=== PATIENT | female | born 1985 | race Two or more races ===

== ENCOUNTER 2017-01-07 04:18 | Inpatient (IN) | payer SELFPAY ==
[~2017-01-07] VITALS: Ht 154.9 cm; Wt 80.9 kg
[2017-01-07] MEDS ORDERED: TERBUTALINE 1 MG/ML VIAL. SQ PRN (05:30)
[2017-01-07] MEDS ORDERED: OXYTOCIN 30 UNIT/500 ML PREMIX 500 ML IV PRN ×3 (05:30→06:30)
[2017-01-07] MEDS ORDERED: LIDOCAINE 1% PF 30 ML VIAL. INJ PRN (05:30)
[2017-01-07] MEDS ORDERED: ONDANSETRON PF 4 MG/2 ML VIAL. IV PRN (05:30)
[2017-01-07] MEDS ORDERED: 0.9 % SODIUM CHLORIDE 10 ML DISP.SYRIN. IV PRN ×2 (05:30→06:30)
[2017-01-07] MEDS ORDERED: fentaNYL PF VIAL 100 MCG/2 ML VIAL IV PRN (05:30)
[2017-01-07] MEDS ORDERED: IBUPROFEN 800 MG TABLET. PO PRN (05:30)
[2017-01-07 05:36] LABS: HEMATOCRIT 39.2 % (36.0-47.0); HEMOGLOBIN 13.6 g/dL (12.0-15.5); RED BLOOD COUNT 4.33 x10^6/uL (3.50-5.40); RED CELL DISTRIBUTION WIDTH 14.5 % (11.5-14.5)
[2017-01-07] MEDS: IV RINGERS,LACTATED 1000ML 1,000 ML IV SCH ×3 (06:16→21:25)
--- NOTE | 2017-01-07 06:23 | PDOC ---
VAGINAL DELIVERY DATE DATE: 01/07/17 TIME: 06:21 : 4 Para: 3 EDC: Jan 07, 2017 VAGINAL DELIVERY: VTX VACCUM ASSISTED: No PLACENTA: Spontaneous SEX: Male WEIGHT 7/8 Nuchal Cord: Yes, Times 1, Loose Amniotic Fluid: Meconium PAIN: Natural EPISIOTOMY: No EXTENSION: No EBL 300cc COMPLICATIONS none CONDITION Stable Signs of Intrauterine Infectio: None Shoulder Dystocia: No DIAGNOSIS TIUPDel Problems: RODGER CHOI MD Jan 07, 2017 06:23
[2017-01-07] MEDS ORDERED: PHENYLEPH/MINERAL OIL/PETROLAT RECTAL OINTMENT 28GM TUBE. RC PRN (06:30)
[2017-01-07] MEDS ORDERED: ACETAMINOPHEN 325 MG TABLET. PO PRN (06:30)
[2017-01-07] MEDS ORDERED: SIMETHICONE 80 MG TAB.CHEW PO PRN (06:30)
[2017-01-07] MEDS ORDERED: MAG HYDROX/ALUMINUM HYD/SIMETH 30 ML ORAL.SUSP PO PRN (06:30)
[2017-01-07] MEDS ORDERED: ZOLPIDEM 5 MG TABLET. PO PRN (06:30)
[2017-01-07] MEDS ORDERED: BENZOCAINE 20% TOPICAL AEROSOL SPRAY 57GM CAN. TP PRN (06:30)
[2017-01-07] MEDS ORDERED: HYDROCORTISONE 1% TOPICAL OINTMENT 30GM TUBE. TP PRN (06:30)
[2017-01-07] MEDS ORDERED: diphenhydrAMINE HCL 25 MG CAPSULE PO PRN (06:30)
[2017-01-07] MEDS ORDERED: MAGNESIUM HYDROXIDE 2,400 MG/30 ML ORAL.SUSP. PO PRN (06:30)
[2017-01-07 06:33] LABS: BILIRUBIN,URINE NEGATIVE (NEG); GLUCOSE,URINE NEGATIVE (NEG); NITRITE,URINE NEGATIVE (NEG); PROTEIN,URINE NEGATIVE (NEG-TRACE); UROBILINOGEN,URINE 0.2 mg/dL (0.2 mg/dL)
[2017-01-07 06:44] LABS: BACTERIA,URINE FEW /HPF (0-FEW); RBC,URINE RARE /HPF (0-2); SQUAMOUS EPITHELIAL CELL,UR FEW /LPF
[2017-01-07] MEDS: FERROUS SULFATE 325 MG TABLET. PO SCH ×2 (08:00→17:00)
[2017-01-07] MEDS: IBUPROFEN 800 MG TABLET. PO SCH ×2 (08:42→20:25)
[2017-01-07 09:50] VITALS: BP 110/63
[2017-01-07 10:30] VITALS: BP 109/69
[2017-01-07 12:50] VITALS: BP 111/68
[2017-01-07 13:20] LABS: BARBITURATES NEG (NEG); BENZODIAZEPINES NEG (NEG); CANNABINOIDS NEG (NEG); COCAINE NEG (NEG); METHADONE NEG (NEG); OPIATES NEG (NEG); PHENCYCLIDINE NEG (NEG)
--- NOTE | 2017-01-07 13:37 | PDOC1 ---
OB - History Hx of Present Care: Good Care Ultrasounds: Normal mid trimester US Obstetrical Complications: None Medical Complications: None Past Family/Social History * Past Medical, Surgical, Family and Obstetric Histories reviewed from chart. Rubella: Immune RPR/VDRL: Negative GBS Status: Negative HBsAG: Negative OB - Chief Complaint & HPI Date of Admission: Date of Admission: Jan 07, 2017 at 04:18 Chief Complaint/History : 3 Para: 2 EGA: 40 Reason for admission: active labor Admission Nurse Assessment Rev: Yes Problems: OB - Admission Exam Physical Exam Vitals: VS - Last 72 Hours, by Label Date Time Temp Pulse Resp B/P (MAP) Pulse Ox O2 Delivery O2 Flow Rate FiO2 01/07/17 12:50 98.1 80 20 111/68 (82) Room Air 98.1 01/07/17 10:30 98.5 75 20 109/69 (82) 98.5 01/07/17 09:50 99.5 91 40 110/63 (79) 99.5 HEENT: Normal Heart: Regular Rate Lungs: Clear Abdomen: Gravid, Non tender, Soft Extremities: Edema Reflexes: Normal Cervical Dilatation: 5cm Effacement: 100% Station: -1 Membranes: Intact Heart Rate: Normal Accelerations: Accelerations Present Decelerations: No decelerations Contractions on Admission: < 5 Minutes Apart Intensity: Firm Text A: 40 wks IUP Active labor P: Admit for labor management. HANH GUERIN Jr, MD Jan 07, 2017 13:37
[2017-01-07] MEDS: HYDROcodone/APAP 5/325MG 1 TAB TABLET PO PRN ×2 (14:47→19:45)
[2017-01-07 17:15] VITALS: BP 113/79
[2017-01-07 20:15] VITALS: BP 112/72
[2017-01-07 23:30] VITALS: BP 125/66
[2017-01-08] MEDS: IBUPROFEN 800 MG TABLET. PO SCH ×3 (05:45→22:00)
[2017-01-08 06:20] LABS: RPR REFLEX Non Reactive (Non Reactive)
[2017-01-08 06:35] VITALS: BP 117/70
[2017-01-08] MEDS: FERROUS SULFATE 325 MG TABLET. PO SCH ×2 (08:00→17:00)
[2017-01-08 10:25] VITALS: BP 104/64
[2017-01-08 14:24] VITALS: BP 130/70
--- NOTE | 2017-01-08 18:23 | PDOC ---
OB Progress Note Date of Service 01/08/17 Time of Evaluation 1820 Notes Pt. feeling well. Pain controlled. Breast feeding. Lab Laboratory Tests Test 01/07/17 05:05 01/07/17 06:20 01/08/17 05:25 White Blood Count 9.0 x10^3/uL (4.0-11.0) Red Blood Count 4.33 x10^6/uL (3.50-5.40) Hemoglobin 13.6 g/dL (12.0-15.5) Hematocrit 39.2 % (36.0-47.0) 33.5 % (36.0-47.0) Mean Corpuscular Volume 91 fL (79-100) Mean Corpuscular Hemoglobin 31 pg (25-35) Mean Corpuscular Hemoglobin Concent 35 g/dL (31-37) Red Cell Distribution Width 14.5 % (11.5-14.5) Platelet Count 163 x10^3/uL (140-400) RPR Titer Additional Testing Non reactive (Non Reactive) Urine Collection Type Unknown Urine Color Yellow Urine Clarity Clear Urine pH 6.0 Urine Specific [place] 1.020 Urine Protein Negative mg/dL (NEG-TRACE) Urine Glucose (UA) Negative mg/dL (NEG) Urine Ketones (Stick) Negative mg/dL (NEG) Urine Blood Small (NEG) Urine Nitrite Negative (NEG) Urine Bilirubin Negative (NEG) Urine Urobilinogen Dipstick 0.2 mg/dL (0.2 mg/dL) Urine Leukocyte Esterase Negative (NEG) Urine RBC Rare /HPF (0-2) Urine WBC 1-4 /HPF (0-4) Urine Squamous Epithelial Cells Few /LPF Urine Bacteria Few /HPF (0-FEW) Urine Mucus Slight /LPF Urine Opiates Screen Neg (NEG) Urine Methadone Screen Neg (NEG) Urine Barbiturates Neg (NEG) Urine Phencyclidine Screen Neg (NEG) Urine Amphetamine/Methamphetamine Neg (NEG) Urine Benzodiazepines Screen Neg (NEG) Urine Cocaine Screen Neg (NEG) Urine Cannabinoids Screen Neg (NEG) Urine Ethyl Alcohol Neg (NEG) Laboratory Tests Test 01/08/17 05:25 Hematocrit 33.5 % (36.0-47.0) Medications Current Medications Sodium Chloride (Normal Saline Flush) 3 ml QSHIFT PRN IV AFTER MEDS AND BLOOD DRAWS; Start 01/07/17 at 05:30 Ringer's Solution 1,000 ml @ 125 mls/hr Q8H IV Last administered on 01/07/17 06:16; Start 01/07/17 at 05:25; Stop 01/08/17 at 00:14; Status DC Fentanyl Citrate (Fentanyl 2ml Vial) 100 mcg PRN Q10MIN PRN IV Labor pain; Start 01/07/17 at 05:30 Ondansetron HCl (Zofran) 4 mg PRN Q4HRS PRN IV NAUSEA/VOMITING; Start 01/07/17 at 05:30 Terbutaline Sulfate (Brethine) 0.25 mg 1X PRN PRN SQ SEE COMMENTS; Start at 05:30; Stop 01/08/17 at 05:29; Status DC Lidocaine HCl 30 ml 1X PRN PRN INJ SEE COMMENTS Last administered on 01/07/17 06:14; Start 01/07/17 at 05:30; Stop 01/09/17 at 05:29 Oxytocin/Sodium Chloride 500 ml @ 0 mls/hr CONT PRN IV SEE I/O RECORD; Start at 05:30 Oxytocin/Sodium Chloride 500 ml @ 0 mls/hr CONT PRN PRN IV Post delivery bleeding Last administered on 01/07/17 06:15; Start 01/07/17 at 05:30 Ibuprofen (Motrin) 800 mg PRN Q6HRS PRN PO PAIN; Start 01/07/17 at 05:30 Sodium Chloride (Normal Saline Flush) 10 ml QSHIFT PRN IV AFTER MEDS AND BLOOD DRAWS; Start 01/07/17 at 06:30 Oxytocin/Sodium Chloride 500 ml @ 62.5 mls/hr CONT PRN IV SEE I/O RECORD; Start 01/07/17 at 06:30; Stop 01/07/17 at 14:29; Status DC Acetaminophen (Tylenol) 650 mg PRN Q6HRS PRN PO MILD PAIN / TEMP; Start at 06:30 Ibuprofen (Motrin) 800 mg Q8HRS PO Last administered on 01/08/17 18:03; Start 01/07/17 at 14:00 Magnesium Hydroxide (Milk Of Magnesia) 2,400 mg PRN DAILY PRN PO CONSTIPATION; Start 01/07/17 at 06:30 Al Hydroxide/Mg Hydroxide (Mylanta Plus Xs) 30 ml PRN Q4HRS PRN PO HEARTBURN / GAS; Start 01/07/17 at 06:30 Simethicone (Gas-X) 80 mg PRN AFTMEALHC PRN PO GAS / BLOATING; Start 01/07/17 at 06:30 Diphenhydramine HCl (Benadryl) 25 mg PRN Q6HRS PRN PO ITCHING; Start 01/07/17 at 06:30 Benzocaine (Americaine) 1 spray PRN QID PRN TP TOPICAL PAIN Last administered on 01/07/17 08:42; Start 01/07/17 at 06:30 Phenyleph/Shark Oil/Min Oil/Petrol (Preparation H) 1 brianda PRN QID PRN RC RECTAL PAIN; Start 01/07/17 at 06:30 Hydrocortisone (Cortaid) 1 brianda PRN QID PRN TP RECTAL PAIN; Start 01/07/17 at 06: 30 Ferrous Sulfate (Feosol) 325 mg BIDWMEALS PO ; Start 01/07/17 at 08:00 Zolpidem Tartrate (Ambien) 5 mg PRN QHS PRN PO INSOMNIA, MAY REPEAT X1; Start 01/07/17 at 06:30 Info (Do NOT chart on this placeholder) 1 ea 1X PRN PRN MC SEE COMMENTS; Start 01/07/17 at 06:30 Acetaminophen/ Hydrocodone Bitart (Lortab 5/325) 1 tab PRN Q4HRS PRN PO PAIN Last administered on 01/07/17t 19:45; Start 01/07/17 at 06:30 Exam Abd: soft, non tender, fundus firm Assessment PPD#1 s/p Plan of Care: Continue current Tx, Mgmt HANH GUERIN Jr, MD Jan 08, 2017 18:23
[2017-01-08 19:59] VITALS: BP 115/78
[2017-01-09 06:11] VITALS: BP 114/67
[2017-01-09] MEDS: IBUPROFEN 800 MG TABLET. PO SCH (09:34)
--- NOTE | 2017-01-09 09:38 | PDOC ---
OB Progress Note Date of Service 01/09/17 Time of Evaluation 0964 Notes Pt. feeling well. Lab Laboratory Tests Test 01/08/17 05:25 Hematocrit 33.5 % (36.0-47.0) Medications Current Medications Sodium Chloride (Normal Saline Flush) 3 ml QSHIFT PRN IV AFTER MEDS AND BLOOD DRAWS; Start 01/07/17 at 05:30 Ringer's Solution 1,000 ml @ 125 mls/hr Q8H IV Last administered on 01/07/17 06:16; Start 01/07/17 at 05:25; Stop 01/08/17 at 00:14; Status DC Fentanyl Citrate (Fentanyl 2ml Vial) 100 mcg PRN Q10MIN PRN IV Labor pain; Start 01/07/17 at 05:30 Ondansetron HCl (Zofran) 4 mg PRN Q4HRS PRN IV NAUSEA/VOMITING; Start 01/07/17 at 05:30 Terbutaline Sulfate (Brethine) 0.25 mg 1X PRN PRN SQ SEE COMMENTS; Start at 05:30; Stop 01/08/17 at 05:29; Status DC Lidocaine HCl 30 ml 1X PRN PRN INJ SEE COMMENTS Last administered on 01/07/17 06:14; Start 01/07/17 at 05:30; Stop 01/09/17 at 05:29; Status DC Oxytocin/Sodium Chloride 500 ml @ 0 mls/hr CONT PRN IV SEE I/O RECORD; Start at 05:30 Oxytocin/Sodium Chloride 500 ml @ 0 mls/hr CONT PRN PRN IV Post delivery bleeding Last administered on 01/07/17 06:15; Start 01/07/17 at 05:30 Ibuprofen (Motrin) 800 mg PRN Q6HRS PRN PO PAIN; Start 01/07/17 at 05:30 Sodium Chloride (Normal Saline Flush) 10 ml QSHIFT PRN IV AFTER MEDS AND BLOOD DRAWS; Start 01/07/17 at 06:30 Oxytocin/Sodium Chloride 500 ml @ 62.5 mls/hr CONT PRN IV SEE I/O RECORD; Start 01/07/17 at 06:30; Stop 01/07/17 at 14:29; Status DC Acetaminophen (Tylenol) 650 mg PRN Q6HRS PRN PO MILD PAIN / TEMP; Start at 06:30 Ibuprofen (Motrin) 800 mg Q8HRS PO Last administered on 01/08/17 18:03; Start 01/07/17 at 14:00 Magnesium Hydroxide (Milk Of Magnesia) 2,400 mg PRN DAILY PRN PO CONSTIPATION; Start 01/07/17 at 06:30 Al Hydroxide/Mg Hydroxide (Mylanta Plus Xs) 30 ml PRN Q4HRS PRN PO HEARTBURN / GAS; Start 01/07/17 at 06:30 Simethicone (Gas-X) 80 mg PRN AFTMEALHC PRN PO GAS / BLOATING; Start 01/07/17 at 06:30 Diphenhydramine HCl (Benadryl) 25 mg PRN Q6HRS PRN PO ITCHING; Start 01/07/17 at 06:30 Benzocaine (Americaine) 1 spray PRN QID PRN TP TOPICAL PAIN Last administered on 01/07/17 08:42; Start 01/07/17 at 06:30 Phenyleph/Shark Oil/Min Oil/Petrol (Preparation H) 1 brianda PRN QID PRN RC RECTAL PAIN; Start 01/07/17 at 06:30 Hydrocortisone (Cortaid) 1 brianda PRN QID PRN TP RECTAL PAIN; Start 01/07/17 at 06: 30 Ferrous Sulfate (Feosol) 325 mg BIDWMEALS PO ; Start 01/07/17 at 08:00 Zolpidem Tartrate (Ambien) 5 mg PRN QHS PRN PO INSOMNIA, MAY REPEAT X1; Start 01/07/17 at 06:30 Info (Do NOT chart on this placeholder) 1 ea 1X PRN PRN MC SEE COMMENTS; Start 01/07/17 at 06:30 Acetaminophen/ Hydrocodone Bitart (Lortab 5/325) 1 tab PRN Q4HRS PRN PO PAIN Last administered on 01/07/17 19:45; Start 01/07/17 at 06:30 Exam Abd: soft, non tender, fundus firm Assessment PPD# 2 s/p Plan of Care: See new orders (D/c home. ) HANH GUERIN Jr, MD Jan 09, 2017 09:38
--- NOTE | 2017-01-09 09:39 | DISCH ---
DISCHARGE INSTRUCTIONS Condition on Discharge Condition on Discharge: Stable Activity After Discharge Activity Instructions for Disc: Activity as tolerated Lifting Instructions after Dis: No heavy lifting Driving Instructions after Dis: Do not drive today Diet after Discharge Diet after Discharge: Regular Contacting the DRRaj after DC Call your doctor for: Concerns you may have Follow-Up Follow up with: Erik in 6 weeks. HANH GUERIN Jr, MD Jan 09, 2017 09:39
[2017-01-09] MEDS ORDERED: IBUP-1060 PO (09:40)
[2017-01-09 11:00] VITALS: BP 125/72
--- NOTE | 2017-01-09 16:59 | PATHOLOGY ---
PATHOLOGY REPORT * * * * * * * * FINAL DIAGNOSIS: 529 gram full term placenta of an estimated 40 weeks gestation with attached membranes and umbilical cord: - Subamnionic pigmented histiocytes consistent with meconium staining. - Prominent foci of intervillous/perivillous fibrin deposition with villous entrapment and degenerative changes. COMMENT: There is no evidence of acute chorioamnionitis. (JPM:mgr; 01/09/2017) REPORT ELECTRONICALLY SIGNED BY: Fermín Link M.D. DATE/TIME: 01/09/2017 16:58 * * * * * * * * GROSS PATHOLOGY: Received in formalin labeled "Ilene Stewart, placenta," is a roach placenta, with attached membranes and umbilical cord. The trimmed placental weight is 529 grams and the disc measures 16.8 x 15.2 x 3.1 cm. The membranes are pale womack and translucent in appearance, and the site of membrane rupture is at the placental margin. The surface is intact displaying a normal arborizing vasculature pattern and moderately detached amnion. The 3 vessel umbilical cord measures 41.1 by up to 1.5 cm and inserts eccentrically, 4.1 cm from the closest placental margin. The umbilical cord is white-womack in appearance with moderate helical twisting. The maternal surface is intact and complete displaying a normal amount cotyledons; a slight amount of adherent blood coagulum is seen on the surface. Sectioning reveals red-brown cut surfaces displaying a single hemorrhagic-appearing area measuring 2.0 cm, which encompasses 1% of the total placental volume. Sections are submitted as follows: A1 umbilical cord surface vessels A2 membrane roll and peripheral placental segment A3-A4 full-thickness placental cross-section, to include hemorrhagic area. (CAA; 01/08/2017) INITIAL CPT CODE(S): A; 31141 Professional services performed by [facility] at [facility] [address] [place] [id number] Technical services performed by [facility] at [address] [place] [address], [address], [place] [address]. SPECIMEN(S) RECEIVED: A.Placenta CLINICAL HISTORY: , EDC 01/07/17, , light meconium , nuchal cord x1, loose, 7lb 8oz male @ 0557 on 01/07/17, apgars 9-9 PATIENT: ILENE ROCK /AGE: 1004/02/1985 (Age: 31) PATIENT #: [id number] ALT CASE #: SPECIMEN COLLECTION DATE: 01/07/2017 SPECIMEN RECEIVED DATE: 01/07/2017 [facility] - [address] [place] [address] - PHONE: [phone] * * * END OF REPORT * * *
== END 2017-01-09 15:52 | disposition home or self-care (01) | DRG 775 ==
LOC: INTOOBSV 04:18 → OBSVTOIN 04:18 → 3 SO LND 04:18
PROVIDERS: ADMIT Obstetrics & Gynecology; ATTEND Obstetrics & Gynecology
PROC: 10E0XZZ Delivery of Products of Conception, External Approach (ICD-10-PCS; principal; 2017-01-07)
DX: O69.81X0 Labor and delivery complicated by cord around neck, without compression, not applicable or unspecified (principal); O77.0 Labor and delivery complicated by meconium in amniotic fluid; Z37.0 Single live birth; Z3A.40 40 weeks gestation of pregnancy
CPT/HCPCS: 36415; 80307; 81001; 85014; 85027; 86593; 86850; 86900; 86901; 88307; C1887; J2590; J7120; G0479